=== PATIENT | female | born 1960 | race Two or more races ===

== ENCOUNTER 2016-10-20 19:47 | Emergency (ER) | payer BC ==
[~2016-10-20] VITALS: Ht 157.5 cm; Wt 102.1 kg
[2016-10-20 21:27] LABS: Basophils # (auto) 0 uL; Basophils % (auto) 0.1 % (0.0-2.0); Eosinophils # (auto) 0 uL; Hematocrit 43.7 % (36.0-46.0); Hemoglobin 14.7 g/dL (12.2-16.2); Lymphocytes # (auto) 0.4 uL; Lymphocytes % (auto) 7.4 % (10.0-50.0); Mean Corpuscular Hemoglobin 28.2 pg (28.0-32.0); Mean Corpuscular Hgb Conc. 33.7 g/dL (32.0-36.0); Mean Corpuscular Volume 83.6 fL (80.0-100.0); Mean Platelet Volume 9.6 fL (7.4-10.4); Monocytes # (auto) 0.3 uL; Monocytes % (auto) 6.4 % (0.0-12.0); Neutrophils # (auto) 4.1 uL; Neutrophils % (auto) 86.1 % (37.0-80.0); Platelet Count (auto) 77 10^3/uL (140-450); Red Cell Distribution Width 17.9 % (11.6-16.0); White Blood Cell 4.8 10^3/uL (4.4-10.8)
[2016-10-20 21:39] LABS: INR 1.21 (0.9-1.15); Prothrombin Time 13.1 sec (9.37-12.3)
[2016-10-20 21:59] LABS: Albumin 3.2 g/dL (3.4-5.0); Alkaline Phosphatase 93 U/L (45-117); Amylase 35 U/L (25-115); Anion Gap 8 (5-15); Aspartate Aminotransferase 52 U/L (15-37); BUN/Creatinine Ratio 17.7; Bilirubin, Total 1.7 mg/dL (0.2-1.0); Blood Urea Nitrogen 17 mg/dL (7-18); Calcium 8.7 mg/dL (8.5-10.1); Carbon Dioxide 25 mmol/L (21-32); Chloride 105 mmol/L (98-107); GFR African American 77 mL/min; GFR Non-African American 63 mL/min; Glucose 124 mg/dL (74-106); Magnesium 2.6 mg/dL (1.6-2.6); Sodium 138 mmol/L (136-145); Total Protein 7.7 g/dL (6.4-8.2)
[2016-10-21] MEDS ORDERED: SODIUM CHLORIDE 0.9% 2,000 ML IV ONE (01:00)
[2016-10-21] MEDS ORDERED: ONDANSETRON HCL 4 MG/2 ML VIAL IV ONE (01:00)
[2016-10-21 02:43] VITALS: BP 137/90
== END 2016-10-21 03:16 | disposition home or self-care (01) ==
LOC: ER 19:56
DX: K80.20 Calculus of gallbladder without cholecystitis without obstruction (principal); K57.30 Diverticulosis of large intestine without perforation or abscess without bleeding; Z98.890 Other specified postprocedural states
CPT/HCPCS: 36415; 74176; 80053; 82150; 83690; 83735; 84484; 85025; 85610; 85730; 93005; 96361; 96374; 99285; J2405; J7030

== ENCOUNTER 2016-11-06 20:17 | Inpatient (IN) | payer BC ==
[~2016-11-06] VITALS: Ht 160 cm; Wt 103.1 kg
[2016-11-06 20:52] LABS: Basophils # (auto) 0 uL; Basophils % (auto) 0.4 % (0.0-2.0); Eosinophils # (auto) 0 uL; Eosinophils % (auto) 0.1 % (0.0-7.0); Hematocrit 35.1 % (36.0-46.0); Hemoglobin 12.1 g/dL (12.2-16.2); Lymphocytes # (auto) 0.4 uL; Lymphocytes % (auto) 8.1 % (10.0-50.0); Mean Corpuscular Hemoglobin 28.7 pg (28.0-32.0); Mean Corpuscular Hgb Conc. 34.5 g/dL (32.0-36.0); Mean Corpuscular Volume 83.2 fL (80.0-100.0); Mean Platelet Volume 7.6 fL (7.4-10.4); Monocytes # (auto) 0.2 uL; Monocytes % (auto) 3.3 % (0.0-12.0); Neutrophils # (auto) 4.5 uL; Neutrophils % (auto) 88.1 % (37.0-80.0); Platelet Count (auto) 167 10^3/uL (140-450); Red Cell Distribution Width 18.3 % (11.6-16.0); White Blood Cell 5.1 10^3/uL (4.4-10.8)
[2016-11-06 21:20] LABS: Alkaline Phosphatase 96 U/L (45-117); Anion Gap 12 (5-15); Aspartate Aminotransferase 33 U/L (15-37); BUN/Creatinine Ratio 13.4; Bilirubin, Total 1.5 mg/dL (0.2-1.0); Blood Urea Nitrogen 11 mg/dL (7-18); Calcium 8.3 mg/dL (8.5-10.1); Carbon Dioxide 16 mmol/L (21-32); Chloride 113 mmol/L (98-107); GFR African American 92 mL/min; GFR Non-African American 76 mL/min; Glucose 115 mg/dL (74-106); Magnesium 2.2 mg/dL (1.6-2.6); Potassium 3.4 mmol/L (3.5-5.1); Sodium 141 mmol/L (136-145); Total Protein 7.1 g/dL (6.4-8.2)
[2016-11-06] MEDS ORDERED: SODIUM CHLORIDE 0.9% 1,000 ML IVB ONE (21:39)
[2016-11-06 22:08] LABS: INR 1.15 (0.9-1.15); Partial Thromboplastin Time 30.4 sec (22.64-33.71)
[2016-11-06 22:13] LABS: Prothrombin Time 12.4 sec (9.37-12.3)
[2016-11-07 01:31] LABS: Urine Bilirubin Negative (Negative); Urine Blood Negative /uL (Negative); Urine Color Yellow (Yellow); Urine Glucose Normal (Normal); Urine Nitrite Negative (Negative); Urine RBC 1 /hpf (0 - 4); Urine Squamous Epithelial Cell FEW /hpf (<5); Urine Urobilinogen Normal (Negative); Urine pH 6.5 (5.0-8.0)
[2016-11-07 01:36] LABS: Urine Ketone 1+ (Negative)
[2016-11-07] MEDS ORDERED: cefTRIAXone 1GM/50ML D5W 50 ML IV ONE (02:00)
[2016-11-07] MEDS ORDERED: LEVOFLOXACIN 750MG 150 ML IV ONE (02:30)
[2016-11-07] MEDS ORDERED: ONDANSETRON HCL 4 MG/2 ML VIAL IV ONE (04:15)
[2016-11-07] MEDS ORDERED: POTASSIUM CHL 20 Meq TABLET PO ONE (05:45)
[2016-11-07] MEDS ORDERED: ONDANSETRON HCL 4 MG/2 ML VIAL IV PRN (05:45)
[2016-11-07] MEDS ORDERED: MORPHINE SULF INJ 2 MG/ML SYRINGE 1ML IV PRN (05:45)
[2016-11-07] MEDS ORDERED: HYDROcodone-ACET 5/325MG TAB PO PRN (05:45)
[2016-11-07] MEDS: SODIUM CHLORIDE 0.9% 1,000 ML IV SCH ×2 (05:51→21:43)
[2016-11-07] MEDS: ACETAMINOPHEN 325 MG TAB PO PRN ×3 (06:37→23:36)
[2016-11-07] MEDS ORDERED: ONDA4TAB5 PO (08:06)
[2016-11-07] MEDS ORDERED: PNEUMOCOCCAL VACC POLYS 25 MCG/0.5 ML VIAL IM ONE (08:15)
[2016-11-07 09:00] VITALS: BP 126/68
[2016-11-07] MEDS ORDERED: ENOXAPARIN SOD 40 MG/0.4 ML SYRINGE SC SCH (10:00)
[2016-11-07] MEDS: LEVOFLOXACIN 500MG 100 ML IV SCH (11:04)
[2016-11-07] MEDS: PANTOPRAZOLE SODIUM 40 MG/10 ML VIAL IV SCH (11:04)
[2016-11-07 13:00] VITALS: BP 117/63
[2016-11-07 17:00] VITALS: BP 120/63
[2016-11-07 20:00] VITALS: BP 117/67
[2016-11-07 22:00] VITALS: BP 117/67
[2016-11-08 05:00] VITALS: BP 135/48
[2016-11-08 07:14] LABS: Basophils # (auto) 0 uL; Basophils % (auto) 0.4 % (0.0-2.0); DEFINITIVE VIEW TRANSMISSION; Eosinophils # (auto) 0.1 uL; Eosinophils % (auto) 1.8 % (0.0-7.0); Hematocrit 34.1 % (36.0-46.0); Hemoglobin 11.5 g/dL (12.2-16.2); Lymphocytes # (auto) 1.4 uL; Lymphocytes % (auto) 46.8 % (10.0-50.0); Mean Corpuscular Hemoglobin 28.5 pg (28.0-32.0); Mean Corpuscular Hgb Conc. 33.6 g/dL (32.0-36.0); Mean Corpuscular Volume 84.9 fL (80.0-100.0); Mean Platelet Volume 8.5 fL (7.4-10.4); Monocytes # (auto) 0.4 uL; Monocytes % (auto) 13.5 % (0.0-12.0); Neutrophils # (auto) 1.1 uL; Neutrophils % (auto) 37.5 % (37.0-80.0); Platelet Count (auto) 152 10^3/uL (140-450)
[2016-11-08 07:30] LABS: Albumin 2.5 g/dL (3.4-5.0); Calcium 7.9 mg/dL (8.5-10.1); Potassium 3.8 mmol/L (3.5-5.1)
[2016-11-08 07:33] LABS: Bilirubin, Total 0.4 mg/dL (0.2-1.0); Total Protein 6.7 g/dL (6.4-8.2)
[2016-11-08 09:00] VITALS: BP 103/67
[2016-11-08] MEDS: PANTOPRAZOLE SODIUM 40 MG/10 ML VIAL IV SCH (10:22)
[2016-11-08] MEDS: LEVOFLOXACIN 500MG 100 ML IV SCH (10:22)
[2016-11-08 13:44] VITALS: BP 127/74
[2016-11-08 16:42] VITALS: BP 115/70
[2016-11-08 20:00] VITALS: BP 124/63
[2016-11-08 22:00] VITALS: BP 124/63
[2016-11-09 05:00] VITALS: BP 126/67
[2016-11-09 05:53] LABS: Basophils # (auto) 0 uL; Basophils % (auto) 0.3 % (0.0-2.0); Eosinophils # (auto) 0 uL; Eosinophils % (auto) 1.1 % (0.0-7.0); Hematocrit 34.7 % (36.0-46.0); Hemoglobin 11.7 g/dL (12.2-16.2); Lymphocytes % (auto) 54.1 % (10.0-50.0); Mean Corpuscular Hemoglobin 28.2 pg (28.0-32.0); Mean Corpuscular Hgb Conc. 33.7 g/dL (32.0-36.0); Mean Corpuscular Volume 83.8 fL (80.0-100.0); Mean Platelet Volume 8.3 fL (7.4-10.4); Monocytes # (auto) 0.4 uL; Neutrophils # (auto) 1.3 uL; Neutrophils % (auto) 34.5 % (37.0-80.0); Platelet Count (auto) 182 10^3/uL (140-450); Red Cell Distribution Width 18.5 % (11.6-16.0); White Blood Cell 3.6 10^3/uL (4.4-10.8)
[2016-11-09 06:41] LABS: Potassium 3.6 mmol/L (3.5-5.1)
[2016-11-09 06:45] LABS: Albumin 2.8 g/dL (3.4-5.0); BUN/Creatinine Ratio 18.4; Bilirubin, Total 0.3 mg/dL (0.2-1.0); Calcium 7.8 mg/dL (8.5-10.1); Total Protein 6.9 g/dL (6.4-8.2)
[2016-11-09 09:06] VITALS: BP 125/63
[2016-11-09] MEDS: PANTOPRAZOLE SODIUM 40 MG/10 ML VIAL IV SCH (10:10)
[2016-11-09] MEDS: LEVOFLOXACIN 500MG 100 ML IV SCH (10:10)
[2016-11-09] MEDS ORDERED: LEVOFLOXACIN 500 MG TAB PO ONE (11:00)
[2016-11-09 13:00] VITALS: BP 135/71
[2016-11-09] MEDS ORDERED: LEVO500T3 PO (13:04)
[2016-11-09 14:43] VITALS: BP 135/71
[2016-11-10] MEDS ORDERED: LEVOFLOXACIN 500 MG TAB PO SCH (10:00)
== END 2016-11-09 15:45 | disposition home or self-care (01) | DRG 690 ==
LOC: EDBD 20:17 → ER 20:20 → OVERFLOW 20:21 → CENTRAL 11-07 06:03
PROVIDERS: ADMIT Nurse Practitioner; ATTEND Internal Medicine
DX: N39.0 Urinary tract infection, site not specified (principal); E66.01 Morbid (severe) obesity due to excess calories; E87.6 Hypokalemia; Z53.20 Procedure and treatment not carried out because of patient's decision for unspecified reasons; K80.20 Calculus of gallbladder without cholecystitis without obstruction; Z82.49 Family history of ischemic heart disease and other diseases of the circulatory system; Z68.39 Body mass index [BMI] 39.0-39.9, adult; Z83.3 Family history of diabetes mellitus; Z88.1 Allergy status to other antibiotic agents
CPT/HCPCS: 36415; 70450; 71010; 78226; 80053; 80307; 80320; 81001; 83516; 83605; 83690; 83735; 84484; 85025; 85610; 85652; 85730; 86141; 86225; 86235; 87040; 87086; 93005; 96361; 96374; 96375; C9113; J1956; J2405